=== PATIENT | female | born 2000 | race Caucasian/White ===

== ENCOUNTER → 2025-02-25 10:14 | Outpatient (BNVA) | payer OTHER, SELFPAY | PROVIDERS: Visit Provider Obstetrics & Gynecology | DX: N93.9 Abnormal uterine and vaginal bleeding, unspecified (principal); R30.0 Dysuria | CPT/HCPCS: 81000; 81025; 87086; 87624 ==

== ENCOUNTER 2025-03-16 08:39 | Outpatient (CLI) | payer OTHER, SELFPAY ==
--- NOTE | 2025-03-16 08:45 | US_ITS ---
WS: [id number] US pelv w/transvag [id number] HISTORY: R10.20 - Pelvic and perineal pain unspecified side COMPARISON: None available. Uterus: 6.3 cm x 4.2 cm x 3.1 cm. Normal size anteverted uterus. No fibroid or mass. Endometrium: 0.5 cm. Normal trilaminar endometrium. Right ovary: 3.0 cm x 2.7 cm x 2.3 cm. Normal size and vascularity, no cystic or solid masses. Left ovary: 3.0 cm x 2.7 cm x 2.5 cm. Normal size and vascularity, no cystic or solid masses. Physiologic free fluid noted. US/US pelv w/transvag [id number] IMPRESSION: Normal transabdominal and transvaginal pelvic ultrasound.
== END 2025-03-16 08:40 | disposition home or self-care (01) ==
PROVIDERS: Visit Provider Obstetrics & Gynecology
DX: R10.20 Pelvic and perineal pain unspecified side (principal)
CPT/HCPCS: 76830; 76856